=== PATIENT | male | born 1990 | race Caucasian/White ===

== ENCOUNTER 2016-04-22 14:32 | Emergency (ER) | payer OTHER ==
[2016-04-22] MEDS ORDERED: Acetaminophen TAB* 325 MG PO ONE (17:09)
--- NOTE | 2016-04-22 17:21 | ED ---
Influenza-Like Illness - HPI Summary HPI Summary: Patient arrives to ED with CC of body aches, NOVOA, mouth pain, throat pain, sweats and chills x 2 days. He states all symptoms have progressively gotten worse and improves only briefly with OTC ibuprofen or tylenol. He also states he collided heads with another person while playing basketball and has had NOVOA's for the last 2 days as well. Denies LOC, memory loss, confusion, hemoatomas or other swelling. Denies weakness or changes in mood. He denies previous STD's and other significant health hx. Patient denies receiving flu vaccine this year stating it makes him have "flu symptoms." Denies N/V/C/D or abdominal pain. - History of Current Complaint Chief Complaint: EDGeneral Time Seen by Provider: 04/22/16 17:01 Hx Obtained From: Patient Onset/Duration: Sudden Onset Severity: Moderate Associated Signs & Symptoms: Fever, T Max - 100.3, F/C, Myalgia, Sore Throat, Headache Related Hx: Possible Flu/Infectious Exposure - Risk Factors Influenza Risk Factors: Negative - Allergy/Home Medications Allergies/Adverse Reactions: Allergies Allergy/AdvReac Type Severity Reaction Status Date / Time Penicillins Allergy Severe Hives Verified 07/19/14 10:35 PMH/Surg Hx/FS Hx/Imm Hx Previously Healthy: Yes Sensory History: Reports: Hx Contacts or Glasses Opthamlomology History: Reports: Hx Contacts or Glasses Psychiatric History: Reports: Hx Anxiety, Hx Inpatient Treatment - 1 year on MHU in [place] at 16 yo, Hx of Violent Episodes Against Others - Surgical History Surgery Procedure, Year, and Place: FOREARM SURGERY 2011 Infectious Disease History: No Infectious Disease History: Denies: Hx Clostridium Difficile, Hx Hepatitis, Hx Human Immunodeficiency Virus (HIV), Hx of Known/Suspected MRSA, Hx Shingles, Hx Tuberculosis, Traveled Outside the in Last 30 Days - Family History Known Family History: Positive: Hypertension - Social History Occupation: Employed Full-time Lives: With Family Alcohol Use: Rare Substance Use Type: Reports: None Hx Tobacco Use: Yes - CHEWS Smoking Status (MU): Light Every Day Tobacco Smoker Type: Cigarettes, Smokeless Tobacco Do You Chew or Dip Tobacco: No Amount Used/How Often: social smoker Have You Chewed or Dipped Tobacco in the LAST YEAR: No Have You Smoked in the Last Year: Yes Review of Systems Positive: Fever, Chills, Fatigue, Skin Diaphoresis Eyes: Negative Positive: Sore Throat, Other - mouth sores/pain Cardiovascular: Negative Respiratory: Negative Gastrointestinal: Negative Positive: no symptoms reported, see HPI Positive: Myalgia - diffuse Skin: Negative Positive: Headache Psychological: Normal All Other Systems Reviewed And Are Negative: Yes Physical Exam Triage Information Reviewed: Yes Vital Signs On Initial Exam: Initial Vitals Temp Pulse Resp BP Pulse Ox 100.9 F 93 20 128/70 99 04/22/16 14:35 04/22/16 14:35 04/22/16 14:35 04/22/16 14:35 04/22/16 14:35 Vital Signs Reviewed: Yes Appearance: Positive: Well-Appearing, No Pain Distress Skin: Positive: Warm, Skin Color Reflects Adequate Perfusion Head/Face: Positive: Normal Head/Face Inspection Eyes: Positive: Normal, EOMI, BEREKET, Conjunctiva Clear ENT: Positive: Pharyngeal erythema, TMs normal, Other - apthous ulcer lesions on inside of L cheek Dental: Positive: Cervical Lymphadenopathy Neck: Positive: No Lymphadenopathy Respiratory/Lung Sounds: Positive: Clear to Auscultation, Breath Sounds Present Cardiovascular: Positive: Normal, RRR Musculoskeletal: Positive: Normal, Strength/ROM Intact Neurological: Positive: Normal, Sensory/Motor Intact, Alert, Oriented to Person Place, Time, Speech Normal Psychiatric: Positive: Affect/Mood Appropriate AVPU Assessment: Alert - [place] Coma Scale Best Eye Response: 4 - Spontaneous Best Motor Response: 6 - Obeys Commands Best Verbal Response: 5 - Oriented Diagnostics - Vital Signs Vital Signs Temp Pulse Resp BP Pulse Ox 04/22/16 16:38 100.4 F 89 20 132/70 100 04/22/16 15:37 101.2 F 89 20 117/78 100 04/22/16 14:35 100.9 F 93 20 128/70 99 - Laboratory Lab Statement: Any lab studies that have been ordered have been reviewed, and results considered in the medical decision making process. Flu Symptom Course/Dx - Course Course Of Treatment: Flu and rapid strep both negative. Orabase analgesic sent to rx for apthous ulcers. Encouraged tylenol 3x daily for symptomatic relief. Will give work note for 2 days d/t fever, symptoms and likely viral illness. STD history negative. Encouraged patient to follow up with PCP if lesions remain, although lesions look like apthous ulcers. Assessment/Plan: Will give work note for 2 days based on fever, symptoms. - Diagnoses Differential Diagnosis/HQI/PQRI: Positive: Influenza, Pneumonia, Upper Respiratory Infection Provider Diagnoses: Systemic viral illness Discharge - Discharge Plan Condition: Stable Disposition: HOME Prescriptions: Benzocaine (Dental) [Orabase-B] 1 pst MT QID #1 pst Patient Education Materials: Viral Syndrome (ED) Forms: *Work Release Referrals: No Primary Care Phys,NOPCP [Primary Care Provider] - Additional Instructions: Tylenol as needed for pain. Drink plenty of fluids. Rest. Return to work when you feel comfortable. I have given you a note until . Wash hands frequently. Orabase to the lesions in the mouth 4 times daily. Centuria teeth well 3x per day until symptoms resolve. Biotene over the counter mouthwash will help with any co-existing dry mouth. Cepacol lozenges may help soothe the sore throat.
[2016-04-22 17:49] VITALS: BP 130/70
== END 2016-04-22 19:38 | disposition home or self-care (01) ==
LOC: ED 14:32
DX: B34.9 Viral infection, unspecified (principal); J02.9 Acute pharyngitis, unspecified; F17.210 Nicotine dependence, cigarettes, uncomplicated; R51 Headache
CPT/HCPCS: 87502; 87651; 99282; A9270-GY

== ENCOUNTER 2016-04-25 16:27 | Emergency (ER) | payer OTHER ==
[2016-04-25] MEDS ORDERED: Clindamycin CAP* 150 MG PO ONE (18:19)
--- NOTE | 2016-04-25 18:50 | ED ---
Throat Pain/Nasal Congestion - HPI Summary HPI Summary: Patient arrives with CC of left sided dental pain after a 2 week viral illness. Patient was seen last week in the ED and given orabase steroid for apthous ulcers which were seen in the L sided cheek. He was diagnosed with a viral illness at the time which he now says is gone and feels much better. Now, only left upper molar dental pain with white lesions surrounding the area. He denies other illness. - History of Current Complaint Hx Obtained From: Patient Onset/Duration: Gradual Onset Severity: Moderate - Epiglottits Risk Factors Epiglottis Risk Factors: Negative <Sanna Martínez - Last Filed: 04/25/16 18:41> <Elias Barajas - Last Filed: 04/27/16 11:29> - History of Current Complaint Chief Complaint: EDDentalPain Time Seen by Provider: 04/25/16 17:58 - Allergies/Home Medications Allergies/Adverse Reactions: Allergies Allergy/AdvReac Type Severity Reaction Status Date / Time Penicillins Allergy Severe Hives Verified 07/19/14 10:35 PMH/Surg Hx/FS Hx/Imm Hx Previously Healthy: Yes Sensory History: Reports: Hx Contacts or Glasses Opthamlomology History: Reports: Hx Contacts or Glasses Psychiatric History: Reports: Hx Anxiety, Hx Inpatient Treatment - 1 year on MHU in [place] at 16 yo, Hx of Violent Episodes Against Others - Surgical History Surgery Procedure, Year, and Place: FOREARM SURGERY 2011 Infectious Disease History: No Infectious Disease History: Denies: Hx Clostridium Difficile, Hx Hepatitis, Hx Human Immunodeficiency Virus (HIV), Hx of Known/Suspected MRSA, Hx Shingles, Hx Tuberculosis, Traveled Outside the in Last 30 Days - Family History Known Family History: Positive: Hypertension - Social History Occupation: Employed Full-time Lives: With Family Alcohol Use: Rare Alcohol Amount: last used x1 day Substance Use Type: Reports: None Hx Tobacco Use: Yes - CHEWS Smoking Status (MU): Light Every Day Tobacco Smoker Type: Cigarettes, Smokeless Tobacco Amount Used/How Often: social smoker Have You Smoked in the Last Year: Yes <Sanna Martínez - Last Filed: 04/25/16 18:41> Review of Systems Constitutional: Negative Eyes: Negative Positive: Dental Pain Cardiovascular: Negative Respiratory: Negative Skin: Negative Neurological: Negative Psychological: Normal All Other Systems Reviewed And Are Negative: Yes <Sanna Martínez - Last Filed: 04/25/16 18:41> Physical Exam Triage Information Reviewed: Yes Vital Signs On Initial Exam: Initial Vitals Temp Pulse Resp BP Pulse Ox 99.3 F 97 20 115/66 100 04/25/16 16:29 04/25/16 16:29 04/25/16 16:29 04/25/16 16:29 04/25/16 16:29 Vital Signs Reviewed: Yes Appearance: Positive: Well-Appearing, No Pain Distress, Well-Nourished Skin: Positive: Warm, Skin Color Reflects Adequate Perfusion Head/Face: Positive: Normal Head/Face Inspection Eyes: Positive: EOMI, BEREKET ENT: Positive: Pharynx normal, TMs normal Dental: Positive: Percussion Tenderness @ - left sided upper and lower jaw pain , Gross Decay/Caries @ - all, Dental Fracture @ - left upper molar, Cervical Lymphadenopathy Neck: Positive: Supple, Nontender Respiratory/Lung Sounds: Positive: Clear to Auscultation, Breath Sounds Present Cardiovascular: Positive: Normal, RRR Abdomen Description: Positive: Nontender Musculoskeletal: Positive: Normal, Strength/ROM Intact Neurological: Positive: Sensory/Motor Intact, Speech Normal Psychiatric: Positive: Normal AVPU Assessment: Alert - [place] Coma Scale Best Eye Response: 4 - Spontaneous Best Motor Response: 6 - Obeys Commands Best Verbal Response: 5 - Oriented <Sanna Martínez - Last Filed: 04/25/16 18:41> Vital Signs On Initial Exam: Initial Vitals Temp Pulse Resp BP Pulse Ox 99.3 F 97 20 115/66 100 04/25/16 16:29 04/25/16 16:29 04/25/16 16:29 04/25/16 16:29 04/25/16 16:29 <Elias Barajas - Last Filed: 04/27/16 11:29> Diagnostics - Vital Signs Vital Signs Temp Pulse Resp BP Pulse Ox 04/25/16 16:29 99.3 F 97 20 115/66 100 <Sanna Martínez - Last Filed: 04/25/16 18:41> - Vital Signs Vital Signs Temp Pulse Resp BP Pulse Ox 04/25/16 18:56 99.2 F 92 16 129/66 04/25/16 16:29 99.3 F 97 20 115/66 100 <Elias Barajas - Last Filed: 04/27/16 11:29> EENT Course/Dx - Course Course Of Treatment: Patient with 1 week hx of apthous ulcers over left cheek no presenting with concern for left upper molar abscess over tooth. Denies fever or other illness. - Differential Diagnoses Differential Diagnoses: Dental Abscess, Dental Caries, Odontogenic Pain, Periodontic Abscess, Periodontic Disease <Sanna Martínez - Last Filed: 04/25/16 18:41> - Course Assessment/Plan: I was available for consultation. This patient was seen by mid level provider. The patient was not presented, seen, or examined by me. WR. <Elias Barajas - Last Filed: 04/27/16 11:29> - Diagnoses Provider Diagnoses: Pain, dental Discharge <Sanna Martínez - Last Filed: 04/25/16 18:41> <Elias Barajas - Last Filed: 04/27/16 11:29> - Discharge Plan Condition: Stable Disposition: HOME Prescriptions: Clindamycin Cap(NF) [Cleocin 300 mg Cap(NF)] 300 mg PO Q6H #28 cap MDD 4 Patient Education Materials: Clindamycin (By mouth), Dental Abscess (ED) Referrals: No Primary Care Phys,NOPCP [Primary Care Provider] - Additional Instructions: You have been diagnosed with dental pain with possible infection: Antibiotics as prescribed to you. Clindamycin 4 times daily for 7 days. To minimize the potential for gastrointestinal intolerance, Clindamycin should be taken at the start of a meal. If you have any questions about your medication, please contact us or ask your pharmacist. Salt water rinses several times per day will improve healing time. Ibuprofen 600mg three times daily with meals for discomfort. Follow up with a dentist for routine care to prevent recurrence of infections. Biotene mouthwash over the counter If fever, worsening pain or swelling develops, see your PCP, dentist or come back to the Emergency Department. Ibuprofen 600mg three times daily for pain. Images - Images Dental: 1 - dental pain with apthous ulcers and erythematous lesions surrounding area <Sanna Martínez - Last Filed: 04/25/16 18:41>
[2016-04-25 18:59] VITALS: BP 129/66
== END 2016-04-25 18:56 | disposition home or self-care (01) ==
LOC: ED 16:27
DX: K08.89 Other specified disorders of teeth and supporting structures (principal); F17.210 Nicotine dependence, cigarettes, uncomplicated; Z88.0 Allergy status to penicillin
CPT/HCPCS: 99282; A9270-GY

== ENCOUNTER → 2016-10-08 08:23 | Emergency (ER) | payer OTHER ==
--- NOTE | 2016-10-08 09:40 | RAD ---
INDICATION: Right foot injury COMPARISON: None TECHNIQUE: AP, lateral, and oblique views were obtained. FINDINGS: The bony structures, joint spaces, and soft tissues are normal for age. IMPRESSION: NEGATIVE EXAMINATION.
--- NOTE | 2016-10-08 10:03 | ED ---
Lower Extremity - HPI Summary HPI Summary: Patient presents to the ED with CC of right medial foot pain after injuring the area last evening. He states he first injured it by stepping off something wrong and twisting the foot. Last night he was playing basketball when he landed wrong and feels as though he twisted the foot. Denies radiation of pain. Denies numbness, tingling, temperature or color changes to the area. Upon first incident, he notes to swelling, but denies any swelling now. He is otherwise healthy and takes no medications. Denies taking medication for relief. He is unable to ambulate and feels bearing weight makes the pain worse. - History of Current Complaint Chief Complaint: EDExtremityLower Stated Complaint: RT FOOT INJURY Time Seen by Provider: 10/08/16 08:32 Hx Obtained From: Patient Mechanism Of Injury: Twisted Onset of Pain: Immediate Onset/Duration: Days Severity Initially: Moderate Severity Currently: Moderate Pain Intensity: 8 Pain Scale Used: 0-10 Numeric Timing: Constant Location: Is Discrete @ - right medial foot Associated Signs And Symptoms: Positive: Negative Aggravating Factor(s): Standing, Ambulation Alleviating Factor(s): Rest Able to Bear Weight: No - Risk Factors Gout Risk Factors: Negative DVT Risk Factors: Negative Septic Arthritis Risk Factor: Negative - Allergies/Home Medications Allergies/Adverse Reactions: Allergies Allergy/AdvReac Type Severity Reaction Status Date / Time Penicillins Allergy Severe Hives Verified 07/19/14 10:35 PMH/Surg Hx/FS Hx/Imm Hx Previously Healthy: Yes Sensory History: Reports: Hx Contacts or Glasses Opthamlomology History: Reports: Hx Contacts or Glasses Psychiatric History: Reports: Hx Anxiety, Hx Inpatient Treatment - 1 year on MHU in [place] at 16 yo, Hx of Violent Episodes Against Others - Surgical History Surgery Procedure, Year, and Place: FOREARM SURGERY 2011 - Immunization History Hx Pertussis Vaccination: No Immunizations Up to Date: Unable to Obtain/Confirm Infectious Disease History: No Infectious Disease History: Denies: Hx Clostridium Difficile, Hx Hepatitis, Hx Human Immunodeficiency Virus (HIV), Hx of Known/Suspected MRSA, Hx Shingles, Hx Tuberculosis, Traveled Outside the [place] in Last 30 Days - Family History Known Family History: Positive: Hypertension - Social History Occupation: Employed Full-time Lives: With Family Alcohol Use: Rare Alcohol Amount: last used x1 day Hx Substance Use: No Substance Use Type: Reports: None Hx Tobacco Use: Yes - CHEWS Smoking Status (MU): Light Every Day Tobacco Smoker Type: Cigarettes, Smokeless Tobacco Amount Used/How Often: social smoker Have You Smoked in the Last Year: Yes Review of Systems Constitutional: Negative Eyes: Negative Cardiovascular: Negative Respiratory: Negative Positive: no symptoms reported, see HPI Positive: Myalgia Skin: Negative Neurological: Negative All Other Systems Reviewed And Are Negative: Yes Physical Exam Triage Information Reviewed: Yes Vital Signs On Initial Exam: Initial Vitals Temp Pulse Resp BP Pulse Ox 96.8 F 60 16 119/69 98 10/08/16 08:26 10/08/16 08:26 10/08/16 08:26 10/08/16 08:26 10/08/16 08:26 Vital Signs Reviewed: Yes Appearance: Positive: Well-Appearing, Well-Nourished Skin: Positive: Skin Color Reflects Adequate Perfusion Head/Face: Positive: Normal Head/Face Inspection Eyes: Positive: EOMI, BEREKET, Conjunctiva Clear Neck: Positive: Supple, Nontender, No Lymphadenopathy Respiratory/Lung Sounds: Positive: Clear to Auscultation, Breath Sounds Present Cardiovascular: Positive: Normal, RRR, Pulses are Symmetrical in both Upper and Lower Extremities Musculoskeletal: Positive: Pain @ - medial foot without ecchymosis or swelling Diagnostics - Vital Signs Vital Signs Temp Pulse Resp BP Pulse Ox 10/08/16 08:50 98.2 F 52 15 112/66 99 10/08/16 08:26 96.8 F 60 16 119/69 98 - Laboratory Lab Statement: Any lab studies that have been ordered have been reviewed, and results considered in the medical decision making process. Lower Extremity Course/Dx - Course Course Of Treatment: Based on [place] [facility] Rules, patient sent to imaging. Xray negative for fracture or other acute findings. Medial and lateral distal lower extremity without pain and x-rays show no widening of the ankle joint regarding low suspicion for Maisonneuve fx. Foot was tiara wrapped to patient comfort to allow for immobilization for this period of time. Crutches given. Patient given orthopedic follow up in 5-7 days. Encouraged Ibuprofen 600mg three times daily with meals for pain. Return precautions given. Educated patient regarding foot injuries and healing time and the possibility of further evaluation and imaging as orthopedist sees fit. This is likely a foot sprain and will take several days to improve. Patient made aware of likely results. - Diagnoses Differential Diagnosis/HQI/PQRI: Positive: Fracture (Closed), Sprain, Strain, Tendonitis Provider Diagnoses: Foot sprain Discharge - Discharge Plan Condition: Stable Disposition: HOME Patient Education Materials: Foot Sprain (ED) Forms: *Work Release Referrals: No Primary Care Phys,NOPCP [Primary Care Provider] - Calos Baires MD [Medical Doctor] - Additional Instructions: Crutches for ambulation given. Ibuprofen 600mg three times daily with meals for pain. Follow up with orthopedic physician in 5-7 days. If numbness, tingling, decreased sensation, increased pain, temperature changes or pallor noted in toes, come back to ER immediately. Protect the area. For your comfort level, do not bear weight, pull or push until you can injury is somewhat healed. This may involve the need for immobilization or crutches for a period of time. Rest the involved area, but not too long. You may need to be off your injury for some time to allow for healing, however excessive immobilization of joints can lead to stiffness and delay healing time. Early mobilization is encouraged if it is pain-free. Ice. Not directly on the skin. Cover with a towel. Apply ice no more than 30 minutes at a time Compression: You may use and keep an tiara wrap bandage over the injury to decrease swelling. Again, this should be limited and be taken off periodically to encourage early range of motion and mobilization. Elevate: Try to elevate the injured area above the heart whenever possible.
[2016-10-08 10:36] VITALS: BP 112/70
== END | disposition home or self-care (01) ==
LOC: ED 08:23
DX: S93.601A Unspecified sprain of right foot, initial encounter (principal); X58.XXXA Exposure to other specified factors, initial encounter; Y93.9 Activity, unspecified; Y92.9 Unspecified place or not applicable; F17.210 Nicotine dependence, cigarettes, uncomplicated
CPT/HCPCS: 99281

== ENCOUNTER 2018-09-15 17:23 | Emergency (ER) | payer OTHER ==
[2018-09-15] MEDS ORDERED: traMADol TAB* 50 MG PO ONE (18:23)
--- NOTE | 2018-09-15 18:23 | ED ---
Throat Pain/Nasal Congestion - HPI Summary HPI Summary: 28-year-old male presents with dental pain for the past couple days. He was just seen at urgent care and placed on clindamycin. He denies any fevers. No chest pain shortness of breath. No difficulty swallowing. no pain or swelling in his eyes. He states he broke his tooth a couple weeks ago. Here for pain control. Has been taking ibuprofen. - History of Current Complaint Chief Complaint: EDDentalPain Time Seen by Provider: 09/15/18 17:49 - Allergies/Home Medications Allergies/Adverse Reactions: Allergies Allergy/AdvReac Type Severity Reaction Status Date / Time MS Penicillins [Penicillins] Allergy Severe Hives Verified 07/19/14 10:35 PMH/Surg Hx/FS Hx/Imm Hx Endocrine/Hematology History: Denies: Hx Anticoagulant Therapy Respiratory History: Denies: Hx Asthma Sensory History: Reports: Hx Contacts or Glasses Opthamlomology History: Reports: Hx Contacts or Glasses Psychiatric History: Reports: Hx Anxiety, Hx Inpatient Treatment - 1 year on MHU in [place] at 16 yo, Hx of Violent Episodes Against Others - Surgical History Surgery Procedure, Year, and Place: FOREARM SURGERY 2011 Infectious Disease History: No Infectious Disease History: Denies: Hx Clostridium Difficile, Hx Hepatitis, Hx Human Immunodeficiency Virus (HIV), Hx of Known/Suspected MRSA, Hx Shingles, Hx Tuberculosis, Traveled Outside the in Last 30 Days - Family History Known Family History: Positive: Hypertension - Social History Alcohol Use: Rare Alcohol Amount: last used x1 day Hx Substance Use: No Substance Use Type: Reports: None Hx Tobacco Use: Yes - CHEWS Smoking Status (MU): Light Every Day Tobacco Smoker Type: Cigarettes, Smokeless Tobacco Amount Used/How Often: social smoker Have You Smoked in the Last Year: Yes Review of Systems Negative: Fever Positive: Dental Pain Negative: Chest Pain Negative: Shortness Of Breath All Other Systems Reviewed And Are Negative: Yes Physical Exam Triage Information Reviewed: Yes Vital Signs On Initial Exam: Initial Vitals Temp Pulse Resp BP Pulse Ox 96.4 F 53 18 154/98 98 09/15/18 17:24 09/15/18 17:24 09/15/18 17:24 09/15/18 17:24 09/15/18 17:24 Vital Signs Reviewed: Yes Appearance: Positive: Well-Appearing Skin: Positive: Warm, Dry Head/Face: Positive: Normal Head/Face Inspection Eyes: Positive: Normal, EOMI, BEREKET, Conjunctiva Clear ENT: Positive: Normal ENT inspection, Pharynx normal, TMs normal Dental: Positive: Dental Fracture @ - lower right jaw, Other - tenderness right lower jaw Respiratory/Lung Sounds: Positive: Clear to Auscultation, Breath Sounds Present Cardiovascular: Positive: Normal, RRR Abdomen Description: Positive: Nontender, Soft Bowel Sounds: Positive: Present Musculoskeletal: Positive: Normal Neurological: Positive: Normal Psychiatric: Positive: Normal Diagnostics - Vital Signs Vital Signs Temp Pulse Resp BP Pulse Ox 09/15/18 17:24 96.4 F 53 18 154/98 98 - Laboratory Lab Statement: Any lab studies that have been ordered have been reviewed, and results considered in the medical decision making process. EENT Course/Dx - Course Course Of Treatment: 28-year-old male presents with dental pain for the past couple days. He was just seen at urgent care and placed on clindamycin. He denies any fevers. No chest pain shortness of breath. No difficulty swallowing. no pain or swelling in his eyes. He states he broke his tooth a couple weeks ago. Here for pain control. Has been taking ibuprofen. On exam has fractured tooth on right lower jaw. No evidence abscess. Gave short course of pain medication. Told to follow-up with dentist. Patient understands agrees plan. - Differential Diagnoses Differential Diagnoses: Dental Abscess, Dental Caries, Fractured Tooth - Diagnoses Provider Diagnoses: Dental infection Discharge - Sign-Out/Discharge Documenting (check all that apply): Patient Departure Patient Received Moderate/Deep Sedation with Procedure: No - Discharge Plan Condition: Good Disposition: HOME Prescriptions: traMADol TAB* [Ultram*] 50 mg PO Q8H PRN #6 tab MDD 3 PRN Reason: Pain Patient Education Materials: Toothache (ED) Referrals: Lidia Jones NP [Primary Care Provider] - Additional Instructions: Take antibiotics as prescribed by urgent care Use ibuprofen every 6 hours and narcotic for break through pain at night Avoid hard, crunchy food until seen by dentist Follow up with dentist as soon as possible Return to ED if develop any new or worsening symptoms - Billing Disposition and Condition Condition: GOOD Disposition: Home
[2018-09-15 18:43] VITALS: BP 132/74
== END 2018-09-15 18:42 | disposition home or self-care (01) ==
LOC: ED 17:23
DX: K04.7 Periapical abscess without sinus (principal); F17.210 Nicotine dependence, cigarettes, uncomplicated; Z88.0 Allergy status to penicillin
CPT/HCPCS: 99282; A9270-GY

== ENCOUNTER 2018-12-31 21:24 | Emergency (ER) | payer OTHER ==
[2018-12-31 21:41] VITALS: BP 143/81
[2018-12-31] MEDS ORDERED: Lidocaine 1% MPF ** 5 ML VIAL INJ ONE (22:15)
--- NOTE | 2018-12-31 22:54 | ED ---
Adult Trauma - HPI Summary HPI Summary: Patient complains of laceration to right eyebrow after being elbowed during a basketball game, complains of swelling to knuckles of right hand after punching a wall. Tetanus status up-to-date. Denies LOC, vision change, N/V, headache, neck pain, dizziness, imbalance, any other symptoms, pain or injury. Medical history is none. - History of Current Complaint Chief Complaint: EDLacSutureRecheck Stated Complaint: RIGHT EYE JURY PER PT Time Seen by Provider: 12/31/18 21:50 Hx Obtained From: Patient Mechanism of Injury: Direct Blow Loss of Consciousness: no loss of consciousness Onset Severity: Severe Current Severity: Severe Pain Intensity: 10 Pain Scale Used: 0-10 Numeric Location: Head, Extremities Character: Dull, Aching Aggravating Factor(s): Nothing, Palpation Alleviating Factor(s): Nothing Associated Signs & Symptoms: Positive: Negative - Allergy/Home Medications Allergies/Adverse Reactions: Allergies Allergy/AdvReac Type Severity Reaction Status Date / Time Penicillins Allergy Hives Verified 10/21/18 21:29 PMH/Surg Hx/FS Hx/Imm Hx Endocrine/Hematology History: Denies: Hx Anticoagulant Therapy Cardiovascular History: Denies: Hx Pacemaker/ICD Respiratory History: Denies: Hx Asthma History: Denies: Hx Dialysis Sensory History: Reports: Hx Contacts or Glasses Opthamlomology History: Reports: Hx Contacts or Glasses EENT History: Denies: Hx Deafness Psychiatric History: Reports: Hx Anxiety, Hx Inpatient Treatment - 1 year on [facility] in [place] at 16 yo, Hx of Violent Episodes Against Others - Surgical History Surgery Procedure, Year, and Place: FOREARM SURGERY 2011 Infectious Disease History: No Infectious Disease History: Denies: Hx Clostridium Difficile, Hx Hepatitis, Hx Human Immunodeficiency Virus (HIV), Hx of Known/Suspected MRSA, Hx Shingles, Hx Tuberculosis, Traveled Outside the [place] in Last 30 Days - Family History Known Family History: Positive: Hypertension - Social History Alcohol Use: Weekly Alcohol Amount: last used x1 day Hx Substance Use: No Substance Use Type: Reports: Marijuana Substance Use Comment - Amount & Last Used: every day Hx Tobacco Use: Yes - CHEWS Smoking Status (MU): Never Smoked Tobacco Type: Cigarettes, Smokeless Tobacco Amount Used/How Often: social smoker Have You Smoked in the Last Year: Yes Review of Systems Constitutional: Negative Eyes: Negative ENT: Negative Cardiovascular: Negative Respiratory: Negative Gastrointestinal: Negative Genitourinary: Negative Musculoskeletal: Other Skin: Other Neurological: Negative Psychological: Normal All Other Systems Reviewed And Are Negative: Yes Physical Exam - Summary Physical Exam Summary: Swelling to MCP joints of the third and fourth digits. 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 Laceration to right eyebrow. EOMI. Neuro exam normal. Normal exam of bones of the face. Triage Information Reviewed: Yes Vital Signs On Initial Exam: Initial Vitals Temp Pulse Resp BP Pulse Ox 98.1 F 87 18 143/81 98 12/31/18 21:37 12/31/18 21:37 12/31/18 21:37 12/31/18 21:37 12/31/18 21:37 Vital Signs Reviewed: Yes Appearance: Positive: Well-Appearing Skin: Positive: Warm Head/Face: Positive: Normal Head/Face Inspection Eyes: Positive: Normal ENT: Positive: Normal ENT inspection Dental: Negative: Dental Fracture @, Bleeding Neck: Positive: Supple Respiratory/Lung Sounds: Positive: Clear to Auscultation Cardiovascular: Positive: Normal Abdomen Description: Positive: Nontender Musculoskeletal: Positive: Normal Neurological: Positive: Normal Psychiatric: Positive: Normal AVPU Assessment: Alert - [place] Coma Scale Best Eye Response: 4 - Spontaneous Best Motor Response: 6 - Obeys Commands Best Verbal Response: 5 - Oriented Coma Scale Total: 15 Procedures - Sedation Patient Received Moderate/Deep Sedation with Procedure: No - Laceration/Wound Repair 1 Location: face Description: Linear Anesthesia: Local, 1.0% Length, Depth and Shape: 3cm x 1cm Betadine Prep?: No Irrigated w/ Saline (ccs): 200 Laceration/Wound Explored: clean Debridement: minimal Number of Sutures: 6 - 6.0 ethilon Layer Closure?: No Sterile Dressing Applied?: No Diagnostics - Vital Signs Vital Signs Temp Pulse Resp BP Pulse Ox 12/31/18 21:37 98.1 F 87 18 143/81 98 - Laboratory Lab Statement: Any lab studies that have been ordered have been reviewed, and results considered in the medical decision making process. Adult Trauma Course/Dx - Course Course Of Treatment: Patient complains of laceration to right eyebrow after being elbowed during a basketball game, complains of swelling to knuckles of right hand after punching a wall. Tetanus status up-to-date. Denies LOC, vision change, N/V, headache, neck pain, dizziness, imbalance, any other symptoms, pain or injury. Medical history is none. Vital signs within normal limits. Laceration to eyebrow cleaned and sutured. X-ray of right hand negative for fracture. - Diagnoses Provider Diagnoses: Laceration, Hand injury Discharge ED - Sign-Out/Discharge Documenting (check all that apply): Patient Departure - Discharge Plan Condition: Stable Disposition: HOME Patient Education Materials: Contusion in Adults (ED) Referrals: Lidia Jones NP [Primary Care Provider] - Additional Instructions: Sutures out in 5 days. Keep wound clean and dry. Ice hand 15 minutes at a time. Ibuprofen 600 mg every 6 hours for 2 days. Return to the ED for any new or worsening symptoms. - Billing Disposition and Condition Condition: STABLE Disposition: Home
== END 2018-12-31 23:04 | disposition home or self-care (01) ==
LOC: ED 21:24
DX: S01.111A Laceration without foreign body of right eyelid and periocular area, initial encounter (principal); S69.91XA Unspecified injury of right wrist, hand and finger(s), initial encounter; W50.0XXA Accidental hit or strike by another person, initial encounter; Y93.67 Activity, basketball; Y92.310 Basketball court as the place of occurrence of the external cause; Z88.0 Allergy status to penicillin; F41.9 Anxiety disorder, unspecified; F17.200 Nicotine dependence, unspecified, uncomplicated
CPT/HCPCS: 12013; 99281